=== PATIENT | male | born 1945 | race Caucasian/White ===

== ENCOUNTER 2019-10-16 08:04 | Outpatient (CLI) | payer MEDICARE, OTHER, SELFPAY ==
--- NOTE | 2019-10-16 | XR_ITS ---
WS: [id number] SHOULDER RIGHT TECHNIQUE: 3 views of the right shoulder CLINICAL INFORMATION: RT SHOULDER PAIN COMPARISON: None. FINDINGS: Hypertrophic acromioclavicular joint. Normal glenohumeral joint. Acromion is normal in appearance. No rmal glenoid. No evidence of acute fracture dislocation. XR/XR shoulder RT min 2V* [id number] IMPRESSION: Hypertrophic AC joint. Right shoulder otherwise unremarkable.
== END 2019-10-16 08:05 | disposition home or self-care (01) ==
LOC: RADWPI 08:11
PROVIDERS: Family Provider Internal Medicine; PCP Internal Medicine; Visit Provider Emergency Medicine
DX: M25.511 Pain in right shoulder (principal)
CPT/HCPCS: 73030

== ENCOUNTER 2023-02-12 06:44 | Outpatient (CLI) | payer MEDICARE, OTHER, SELFPAY ==
--- NOTE | 2023-02-12 07:17 | CT_ITS ---
WS: [id number] CT LUMBAR SPINE TECHNIQUE: Noncontrast CT of the lumbar spine with coronal and sagittal reformatted images. CLINICAL INFORMATION: LUMBOSACRAL SPONDYLOSIS WITH RADICULOPATHY COMPARISON: None. DLP: 384.[address] scans at [facility] use at least one of these dose optimization techniques: automated e xposure control; mA and/or kV adjustment per patient size (includes targeted exams where dose is matc hed to clinical indication); or iterative reconstruction. FINDINGS: Mild lumbar curve. No acute compression. Interbody bony fusion L5-S1 with slight retrolisthesis. Post operative changes RIGHT hemilaminectomy L3-L4, L4-5, and L5-S1. Prominent anterior hypertrophic hsu es. L1-L2: Mild disc bulge with osteophytic ridging. Mild central canal stenosis. Moderate facet arthropa thy. Mild RIGHT greater than LEFT foraminal narrowing. L2-L3: Moderate to severe central canal stenosis. Mild disc bulging with moderate facet arthropathy a nd ligamentum flavum hypertrophy. Moderate RIGHT and mild LEFT foraminal narrowing. L3-L4: Mild disc bulge and osteophytic ridging. Narrowing of the RIGHT subarticular recess. Moderate LEFT greater than RIGHT foraminal narrowing. RIGHT hemilaminectomy. L4-L5: Mild disc bulging with osteophytic ridging. Narrowing of the RIGHT greater than LEFT subarticu lar recess. Spinal canal is patent. RIGHT hemilaminectomy. Moderate RIGHT greater than LEFT foraminal narrowing. L5-S1: Slight retrolisthesis. RIGHT hemilaminectomy. Impingement traversing S1 nerve roots bilaterall y. Moderate RIGHT and mild LEFT foraminal narrowing. Slight contact of the traversing LEFT greater th an RIGHT S1 nerve roots. Moderate facet arthropathy. Visualized pelvic bony structures: Normal. Paravertebral soft tissues: Normal. IMPRESSION: 1. Prior postoperative changes RIGHT L3-L4 L4-L5 and L5-S1 hemilaminectomies. 2. Interbody bony fusion L5-S1 with slight retrolisthesis. 3. Moderate to severe central canal stenosis L2-3 due to disc bulge with facet arthropathy and ligam entum flavum hypertrophy. 4. Osteophytic ridging L5-S1 slightly contacts the traversing LEFT greater than RIGHT S1 nerve roots . 5. Multilevel moderate foraminal narrowing described above worse RIGHT L2-3, bilateral L3-4, RIGHT L 4-5
== END 2023-02-12 06:45 | disposition home or self-care (01) ==
LOC: RAD 06:46
PROVIDERS: Family Provider Internal Medicine; PCP Internal Medicine; Visit Provider General Practice
DX: M47.27 Other spondylosis with radiculopathy, lumbosacral region (principal); M48.07 Spinal stenosis, lumbosacral region; M25.78 Osteophyte, vertebrae; Z98.890 Other specified postprocedural states; Z98.1 Arthrodesis status
CPT/HCPCS: 72131

== ENCOUNTER 2023-06-04 09:55 | Outpatient (CLI) | payer OTHER, SELFPAY ==
--- NOTE | 2023-06-04 10:16 | XR_ITS ---
WS: [id number] Examination: XR lumbar spine min 4V [id number] Reason for Exam: LBP Date: 06/04/2023 Comparison: None. Findings: The bone density is maintained. The pedicles are intact There is no anterior wedging or compression There is subtle anterolisthesis at L4-5. Alignment is stable across flexion and extension Diffuse degenerative disc disease is present. There is narrowing of the L5-S1 disc. Prominent anterio r osteophytes are present. There is sclerosis with facet hypertrophy Impression: There is no wedging or compression Minimal L4-5 anterolisthesis is identified Diffuse degenerative disc disease is present.
--- NOTE | 2023-06-04 10:16 | XR_ITS ---
WS: [id number] Examination: XR chest 2V* [id number] Reason for Exam: OK Date: 06/04/2023 Comparison: None. Findings: The cardiomediastinal silhouette is within normal limits. There is no pulmonary edema or pleural effusion. There is no dense consolidation. Left-sided calcified granuloma is identified. Hypertrophic changes of the thoracic spine are present. Impression: No acute lung process is identified.
== END 2023-06-04 09:56 | disposition home or self-care (01) ==
PROVIDERS: PCP Internal Medicine; Visit Provider Nurse Practitioner Family
DX: M54.50 Low back pain, unspecified (principal); I21.9 Acute myocardial infarction, unspecified
CPT/HCPCS: 71046; 72110